=== PATIENT | female | born 1990 | race Caucasian/White ===

== ENCOUNTER 2016-11-17 17:33 | Emergency (ER) | payer OTHER ==
[2016-11-17 18:41] VITALS: TEMP 96.4
[2016-11-17] MEDS ORDERED: LORazepam 1 MG TABLET PO ONE (18:44)
[2016-11-17] MEDS ORDERED: HYDROcodone-APAP 5 MG -325 MG TABLET PO ONE (18:44)
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
[2016-11-17 19:13] VITALS: RESP 14
== END 2016-11-17 19:54 | disposition home or self-care (01) ==
LOC: ER 17:33
DX: M62.830 Muscle spasm of back (principal); M54.2 Cervicalgia; M54.89 Other dorsalgia; V43.62XA Car passenger injured in collision with other type car in traffic accident, initial encounter; Y92.411 Interstate highway as the place of occurrence of the external cause
CPT/HCPCS: 99282